=== PATIENT | male | born 1955 | race Two or more races ===

== ENCOUNTER → 2024-02-01 06:31 | Outpatient (REF) | payer MEDICARE, OTHER, SELFPAY ==
[2024-02-01 07:33] LABS: % Basophils 0.6 % (0-2); % Eosinophils 2.4 % (0-6); % Immature Granulocytes 0.2 % (0-0.5); % Lymphocytes 37.1 % (20.5-51.1); % Monocytes 7.9 % (1.7-9.3); % Neutrophils 51.8 % (42.2-75.2); Absolute Basophils 0.1 10^3/uL (0-0.2); Absolute Eosinophils 0.2 10^3/uL (0-0.7); Absolute Lymphocytes 3.5 10^3/uL (1.2-3.4); Absolute Monocytes 0.7 10^3/uL (0.1-0.6); Absolute Neutrophils 4.8 10^3/uL (1.4-6.5); Hematocrit 42.3 % (39.0-52.0); Hemoglobin 13.9 g/dL (13.0-18.0); Mean Corp Hgb Conc. 32.9 g/dL (33.0-37.0); Mean Corpuscular Hgb 27.9 pg (27.0-31.0); Mean Corpuscular Volume 84.9 fL (80.0-94.0); Mean Platelet Volume 9.5 fL (7.4-10.4); Nucleated Red Blood Cells % 0 % (-); Platelet Count 325 10^3/uL (130-400); Red Blood Cell Count 4.98 10^6/uL (4.70-6.10); Red Cell Dist. Width 13.7 % (11.5-14.5); White Blood Cell Count 9.3 10^3/uL (4.8-10.8)
[2024-02-01 07:50] LABS: ALT (SGPT) 20 U/L (0-50); AST (SGOT) 26 U/L (17-59); Albumin 4.6 g/dl (3.5-5.0); Alkaline Phosphatase 88 U/L (38-126); Blood Urea Nitrogen 48 mg/dl (9-20); Calcium 9.8 mg/dl (8.4-10.2); Carbon Dioxide 21 mmol/L (22-30); Chloride 108 mmol/L (98-107); Glucose 116 mg/dl (70-99); HDL Cholesterol 34 mg/dl; LDL Cholesterol, Calculated 29 mg/dl; Potassium 4.1 mmol/L (3.5-5.1); Sodium 142 mmol/L (135-145); Total Bilirubin 0.3 mg/dl (0.2-1.3); Total Cholesterol 112 mg/dl (50-199); Total Protein 7.6 g/dl (6.3-8.2); Triglyceride 245 mg/dl (10-149); Very Low Density Lipoprotein 49 mg/dl (0-30)
[2024-02-01 09:00] LABS: Glycohemoglobin (HgbA1c) 7.1 % (4.0-5.6)
[2024-02-01 09:21] LABS: Vitamin D, 25-OH*** 43.3 ng/mL (30-80)
[2024-02-01 09:28] LABS: PSA, Total - Screen 0.57 ng/ml (0.0-4.0)
[2024-02-01 10:09] LABS: TSH Reflex To Free T4 3.12 uIU/ml (0.47-4.68)
== END ==
LOC: REG 06:31
PROVIDERS: ATTENDING PHYSICIAN Nurse Practitioner Primary Care
DX: E11.3293 Type 2 diabetes mellitus with mild nonproliferative diabetic retinopathy without macular edema, bilateral (principal); N18.31 Chronic kidney disease, stage 3a; E78.2 Mixed hyperlipidemia; E55.9 Vitamin D deficiency, unspecified; E03.8 Other specified hypothyroidism; Z12.5 Encounter for screening for malignant neoplasm of prostate
CPT/HCPCS: 36415; 80053; 80061; 82306; 83036; 84443; 85025; G0103

== ENCOUNTER → 2024-05-01 06:46 | Outpatient (REF) | payer MEDICARE, OTHER, SELFPAY ==
[2024-05-01 10:02] LABS: ALT (SGPT) 23 U/L (0-50); AST (SGOT) 31 U/L (17-59); Albumin 4.5 g/dl (3.5-5.0); Alkaline Phosphatase 95 U/L (38-126); Blood Urea Nitrogen 31 mg/dl (9-20); Carbon Dioxide 27 mmol/L (22-30); Chloride 101 mmol/L (98-107); Glucose 143 mg/dl (70-99); HDL Cholesterol 30 mg/dl; LDL Cholesterol, Calculated 42 mg/dl; Phosphorus 4.2 mg/dl (2.5-4.5); Potassium 4.2 mmol/L (3.5-5.1); Sodium 143 mmol/L (135-145); Total Bilirubin 0.4 mg/dl (0.2-1.3); Total Cholesterol 127 mg/dl (50-199); Total Protein 7.1 g/dl (6.3-8.2); Triglyceride 279 mg/dl (10-149); Very Low Density Lipoprotein 55 mg/dl (0-30); eGFR 49.77
[2024-05-01 10:27] LABS: Glycohemoglobin (HgbA1c) 6.6 % (4.0-5.6)
[2024-05-01 10:38] LABS: Protein/creatinine Ratio 0.2; Urine Protein 14 mg/dl
[2024-05-03 10:52] LABS: Intact PTH 62.4 pg/ml (13.6-85.8)
== END ==
LOC: REG 06:46
PROVIDERS: ATTENDING PHYSICIAN Specialist; FAMILY PHYSICIAN Nurse Practitioner Primary Care
DX: E11.65 Type 2 diabetes mellitus with hyperglycemia (principal); N18.32 Chronic kidney disease, stage 3b; I10 Essential (primary) hypertension; R80.9 Proteinuria, unspecified; E11.3293 Type 2 diabetes mellitus with mild nonproliferative diabetic retinopathy without macular edema, bilateral
CPT/HCPCS: 36415; 80053; 80061; 82570; 83036; 83970; 84100; 84156

== ENCOUNTER → 2024-05-23 16:20 | Outpatient (REF) | payer MEDICARE, OTHER, SELFPAY | LOC: RCS 16:20 | PROVIDERS: ATTENDING PHYSICIAN Nurse Practitioner Primary Care | DX: E11.22 Type 2 diabetes mellitus with diabetic chronic kidney disease (principal); I10 Essential (primary) hypertension; R01.1 Cardiac murmur, unspecified | CPT/HCPCS: 93306 ==

== ENCOUNTER → 2024-08-22 06:29 | Outpatient (REF) | payer MEDICARE, OTHER, SELFPAY ==
[2024-08-22 08:04] LABS: ALT (SGPT) 19 U/L (0-50); AST (SGOT) 25 U/L (17-59); Albumin 4.6 g/dl (3.5-5.0); Alkaline Phosphatase 87 U/L (38-126); Blood Urea Nitrogen 43 mg/dl (9-20); Calcium 9.7 mg/dl (8.4-10.2); Carbon Dioxide 25 mmol/L (22-30); Chloride 101 mmol/L (98-107); Glucose 194 mg/dl (70-99); Potassium 4.3 mmol/L (3.5-5.1); Sodium 140 mmol/L (135-145); Total Bilirubin 0.4 mg/dl (0.2-1.3); Total Protein 7.4 g/dl (6.3-8.2); eGFR 46.06
[2024-08-22 09:47] LABS: Glycohemoglobin (HgbA1c) 6.6 % (4.0-5.6)
== END ==
LOC: REG 06:29
PROVIDERS: ATTENDING PHYSICIAN Nurse Practitioner Primary Care
DX: E11.42 Type 2 diabetes mellitus with diabetic polyneuropathy (principal); E11.3293 Type 2 diabetes mellitus with mild nonproliferative diabetic retinopathy without macular edema, bilateral
CPT/HCPCS: 36415; 80053; 83036

== ENCOUNTER 2024-11-09 06:18 | Day surgery (SDC) | payer MEDICARE, OTHER, SELFPAY ==
[2024-11-09 07:31] LABS: Glucose - Point of Care 180 mg/dl (70-99)
== END 2024-11-09 08:42 | disposition home or self-care (01) ==
LOC: GI 06:18
PROVIDERS: ATTENDING PHYSICIAN Internal Medicine Gastroenterology
DX: Z12.11 Encounter for screening for malignant neoplasm of colon (principal); K64.8 Other hemorrhoids; K57.30 Diverticulosis of large intestine without perforation or abscess without bleeding
CPT/HCPCS: G0121; 82962

== ENCOUNTER → 2024-12-21 06:29 | Outpatient (REF) | payer MEDICARE, OTHER, SELFPAY ==
[2024-12-21 07:28] LABS: Blood Urea Nitrogen 32 mg/dl (9-20); Calcium 9.5 mg/dl (8.4-10.2); Carbon Dioxide 24 mmol/L (22-30); Chloride 105 mmol/L (98-107); Glucose 121 mg/dl (70-99); Potassium 4.3 mmol/L (3.5-5.1); Sodium 141 mmol/L (135-145); eGFR 49.77
[2024-12-21 08:15] LABS: Glycohemoglobin (HgbA1c) 7.2 % (4.0-5.6)
[2024-12-21 11:33] LABS: Microalbumin, Random Urine 7.1 mg/dl (0.6-1.7)
[2024-12-21 11:37] LABS: Microalbumin/creatinine Ratio 72.1 mg/g
== END ==
LOC: REG 06:29
PROVIDERS: ATTENDING PHYSICIAN Nurse Practitioner Primary Care
DX: E11.42 Type 2 diabetes mellitus with diabetic polyneuropathy (principal); N18.32 Chronic kidney disease, stage 3b
CPT/HCPCS: 36415; 80048; 82043; 82570; 83036

== ENCOUNTER → 2025-05-28 09:58 | Outpatient (REF) | payer OTHER, SELFPAY ==
[2025-05-28 10:57] LABS: Hematocrit 41.5 % (39.0-52.0); Hemoglobin 13.5 g/dL (13.0-18.0); Mean Corp Hgb Conc. 32.5 g/dL (33.0-37.0); Mean Corpuscular Volume 83.7 fL (80.0-94.0); Nucleated Red Blood Cells % 0 % (-); Platelet Count 308 10^3/uL (130-400); Red Cell Dist. Width 13.7 % (11.5-14.5)
[2025-05-28 11:37] LABS: ALT (SGPT) 21 U/L (0-50); AST (SGOT) 26 U/L (17-59); Albumin 4.8 g/dl (3.5-5.0); Alkaline Phosphatase 74 U/L (38-126); Blood Urea Nitrogen 36 mg/dl (9-20); Calcium 10.0 mg/dl (8.4-10.2); Carbon Dioxide 23 mmol/L (22-30); Chloride 107 mmol/L (98-107); Glucose 126 mg/dl (70-99); Potassium 4.5 mmol/L (3.5-5.1); Sodium 142 mmol/L (135-145); Total Protein 7.8 g/dl (6.3-8.2); eGFR 49.47
[2025-05-28 11:40] LABS: Vitamin D, 25-OH*** 29.5 ng/mL (30-80)
[2025-05-28 11:54] LABS: PSA, Total - Screen 0.59 ng/ml (0.0-4.0)
[2025-05-28 12:21] LABS: Glycohemoglobin (HgbA1c) 7.1 % (4.0-5.6)
== END ==
LOC: REG 09:58
PROVIDERS: ATTENDING PHYSICIAN Nurse Practitioner Primary Care
DX: R14.2 Eructation (principal); E11.42 Type 2 diabetes mellitus with diabetic polyneuropathy; I10 Essential (primary) hypertension; E55.9 Vitamin D deficiency, unspecified; Z12.5 Encounter for screening for malignant neoplasm of prostate; E03.8 Other specified hypothyroidism
CPT/HCPCS: 36415; 80053; 82306; 83013; 83036; 84443; 85025; G0103